=== PATIENT | female | born 1995 | race Caucasian/White ===

== ENCOUNTER 2016-07-22 17:05 | Emergency (ER) | payer SELFPAY ==
--- NOTE | 2016-07-22 20:43 | RAD ---
RIGHT WRIST THREE VIEWS: 07/22/16 No acute fracture was identified. The metacarpals and carpal bones all appeared intact and the carpa l relations were normal. IMPRESSION: No acute finding. POS: HOME
== END 2016-07-22 17:50 | disposition home or self-care (01) ==
LOC: BURERS 17:05
DX: S60.211A Contusion of right wrist, initial encounter (principal); F17.210 Nicotine dependence, cigarettes, uncomplicated; X58.XXXA Exposure to other specified factors, initial encounter
CPT/HCPCS: 99283

== ENCOUNTER 2016-11-05 17:02 | Emergency (ER) | payer SELFPAY ==
--- NOTE | 2016-11-05 18:15 | RAD ---
THREE VIEW RIGHT KNEE 11/05/16 INDICATION: Fall with knee pain. FINDINGS: There is mild joint capsular distention of the suprapatellar bursa with a small nonspecific ossifica tion. No acute fracture otherwise depicted. No significant arthropathy. IMPRESSION: Mild joint capsular distention. Small ossification of the suprapatellar bursa is present. Otherwise, no acute fracture visualized. POS: [facility]
== END 2016-11-05 17:53 | disposition home or self-care (01) ==
LOC: BURERS 17:02
DX: S80.01XA Contusion of right knee, initial encounter (principal); F17.210 Nicotine dependence, cigarettes, uncomplicated; W18.30XA Fall on same level, unspecified, initial encounter